=== PATIENT | male | born 1965 | race Caucasian/White ===

== ENCOUNTER 2018-08-13 20:39 | Emergency (ER) | payer BC ==
[2018-08-13 20:43] VITALS: BP 139/79; PULSE 74; TEMP 97.7; BMI 29.0
--- NOTE | 2018-08-13 20:44 | PDOC ---
Rapid Medical Evaluation Time Seen by Provider: 08/13/18 20:40 Medical Evaluation: 08/13/18 20:40 Pt presents to the ED for 3 days of L sided chest pain. States that the pain comes and goes. States that the pain is worse with movement. Exam: RRR, CTAB Orders: labs, EKG, CXR Pt to proceed to ED for further evaluation Discharge Disposition - Diagnosis Chest pain - Referrals Referrals: Jaime Hadley MD [Primary Care Provider] - - Patient Instructions - Post Discharge Activity
[2018-08-13] MEDS ORDERED: IBUPROFEN 400 MG TABLET (FP) PO ONE ×2 (21:32→21:48)
--- NOTE | 2018-08-13 21:43 | PDOC ---
History of Present Illness - General Chief Complaint: Chest Pain Stated Complaint: LEF SIDE PAIN Time Seen by Provider: 08/13/18 20:40 - History of Present Illness Initial Comments: 08/13/18 21:33 Shreyas Lema is a 52yo man with a PMH of hypothyroidism who presents with 1week of occasional, sharp, non-radiating, 6-9/10 pain that occurs with sudden movement of the left arm, twisting at the waist, or very deep inspiration. The pain self-resolves after a second or two. It is not accompanied by nausea, vomiting, SOB, or diaphoresis. The pain is not related to exertion. 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 Mr Lema has not tried anything at home to help relieve the pain. He denies any pain currently. He denies recent fevers, chills, trauma, unusual heavy lifting, or cough. He does not have a history of heartburn and has not been nauseated or vomiting. He has not noticed a rash. He says that he is able to run up a flight of stairs without the pain occurring. He does admit to a similar episode about 1.5 years ago and presented to the ED at [facility]. He does not remember what he was told at that time, but he does not recall any follow up or medications given at that time. He has regular doctor's visits every 6 months with his steward/stewardess third, who is also his PMD, for management of well-controlled hypothyroidism. Past History - Past Medical History Allergies/Adverse Reactions: Allergies Allergy/AdvReac Type Severity Reaction Status Date / Time No Known Allergies Allergy Verified 08/13/18 22:17 Home Medications: Ambulatory Orders Levothyroxine Sodium [Synthroid] 200 mcg PO AC 08/13/18 COPD: No Thyroid Disease: Yes - Suicide/Smoking/Psychosocial Hx Smoking History: Never smoked Review of Systems - Review of Systems Comments:: General: No fevers, no chills, no weight or appetite change, no malaise HEENT: No changes in vision, no changes in hearing, no congestion, no sore throat CV: No exertional chest pain, no palpitations, no LE edema Pulm: No SOB, no cough, no wheezing GI: No nausea or vomiting, no change in bowel habits, no melena : No frequency, no urgency, no dysuria Musc: No back pain, no joint swelling, no recent injury Skin: No rash, no lesions, no erythema Endo: No excessive thirst, no heat/cold intolerance Heme: No unusual bruising or bleeding, no swollen glands Neuro: No syncope, no numbness/tingling, no focal weakness Vasc: No claudication Psych: No recent change in mood, no SI or HI *Physical Exam - Vital Signs Last Vital Signs Temp Pulse Resp BP Pulse Ox 97.7 F 74 18 139/79 99 08/13/18 20:41 08/13/18 20:41 08/13/18 20:41 08/13/18 20:41 08/13/18 20:41 - Physical Exam Comments: General: Comfortable, no acute distress HEENT: PERRL, EOMI, MMM, voice normal, normal neck ROM, no LAD Cards: RRR, no murmur appreciated Pulm: Comfortable on room air, clear to auscultation bilaterally. Chest wall non -tender to palpation. Abd: Soft, nontender, nondistended : No CVA tenderness Ext: Atraumatic. No LE edema. ROM intact. Strength 5/5 and equal bilaterally Vasc: Extremities WWP. Skin: Normal color, no rashes or lesions Neuro: A&Ox3, CN grossly intact, normal speech, motor/sensory grossly intact and symmetric Psych: Mood appropriate to situation Heart Score/ECG Review - History History: Slightly suspicious - Electrocardiogram EKG: Normal - Age Age: 45-65 - Risk Factors Risk Factors Heart Score: No Hx Hypercholesterolemia, No Hx Hypertension, No Hx Diabetes, No Smoking History, No Positive family hx of cardiac disease, No Hx Obesity Based on the list above the patient has:: No risk factors known - ECG Intrepretation Rhythm: Regular Rhythm - [place]: Normal - ST and T Non Specific ST-T Wave changes: No - ECG Impressions Normal ECG: Yes ED Treatment Course - LABORATORY CBC & Chemistry Diagram: 08/13/18 23:15 08/13/18 23:15 - RADIOLOGY Radiology Studies Ordered: Category Date Time Status CHEST - PA [RAD] Stat Radiology 08/13/18 21:11 Ordered Medical Decision Making - Medical Decision Making 08/13/18 21:44 Shreyas Lema is a 52yo man with a PMH of hypothyroidism who presents with one week of intermittent, sharp, self-resolving, brief left lower chest pain that occurs with motion but is not related to exertion. - Very low suspicion for ACS given lack of underlying medical conditions, lack of associated nausea/vomiting/diaphoresis, and ability of the patient to complete strenuous activities without the pain occurring. Also, as he and his report that he sees his regular physician every 6 months, his lack of comorbidities is reliable - No fever, cough, sick contacts concerning for pneumonia or other pulmonary infection - No skin rash suggestive of shingles - EKG and CXR ordered in triage - EKG normal sinus rhythm without abnormalities - CXR pending - 800mg ibuprofen ordered for pain 08/13/18 23:09 - Given patient's age and work as a truck service manager, will order CBC, BMP and trop to rule out gross abnormalities. 08/13/18 23:59 - Labs unremarkable - CXR completed. Reviewed in ED. No abnormalities noted. - Plan to discharge home. Should follow up with his PMD within the next week. Discussed home care and return precautions. Mr Lema reports understanding of and agreement with this plan. Seen and discussed with Dr Macias. Leticia Garcia PGY1 *DC/Admit/Observation/Transfer Diagnosis at time of Disposition: Chest pain - Discharge Dispostion Disposition: HOME Condition at time of disposition: Stable - Referrals Referrals: Jaime Hadley MD [Primary Care Provider] - - Patient Instructions Printed Discharge Instructions: DI for Atypical Chest Pain Additional Instructions: Discharge Instructions: - You were seen in the ED for chest pain - An EKG and a chest xray were completed during your visit, and both were normal. There was no sign of any problem with your heart or lungs. - Your pain is most likely due to irritation to a muscle in between your ribs - You may use acetaminophen (Tylenol) or ibuprofen (Advil, Motrin) for continued pain. - Consider using hot or cold packs to help relieve your pain - If the pain occurs frequently and restricts your normal activities, you may consider buying lidocaine patches at any pharmacy. These can be applied for 12 hours per day and will numb the area that continues to hurt. - Call your regular doctor to make an appointment within the next week for follow up - Seek immediate medical care at the nearest ER if you experience persistent pain along with shortness of breath, sweating, or nausea/vomiting. - Post Discharge Activity
[2018-08-13 22:11] LABS: URINE APPEARANCE CLEAR; URINE BILIRUBIN NEGATIVE (<2.0 mg/dL); URINE COLOR YELLOW; URINE GLUCOSE (UA) NEGATIVE (NEGATIVE); URINE KETONE NEGATIVE (NEGATIVE); URINE LEUK ESTERASE NEGATIVE (NEGATIVE); URINE NITRITE NEGATIVE (NEGATIVE); URINE PROTEIN NEGATIVE (NEGATIVE); URINE UROBILINOGEN NEGATIVE mg/dL (0.2-1.0)
--- NOTE | 2018-08-13 22:49 | PDOC ---
Attending Attestation - Resident Resident Name: JoseLeticia - ED Attending Attestation I have performed the following: I have examined & evaluated the patient, The case was reviewed & discussed with the resident, I agree w/resident's findings & plan, Exceptions are as noted - HPI HPI: 08/14/18 00:03 52yo male with hx of hypothyroidism with intermittent brief seconds of L lower rib/chest pain. No tobacco. No trauma. Worse with movement. No cough. No f/c. No abd pain. No n/v/d. Has not tried meds at home. - Physicial Exam PE: 08/14/18 00:05 Gen: aaox3, nad heart: +s1s2 reg Lungs: cta b/l, no chest wall ttp abd: soft, nt/nd +bs ext: no c/c/e - Medical Decision Making 08/13/18 22:48 I, Dr. Verena Macias, DO, attest that this document has been prepared under my direction and personally reviewed by me in its entirety. I further attest, that it accurately reflects all work, treatment, procedures and medical decision -making performed by me. 08/13/18 23:29 a/p: 52yo male with intermittent L sided cp -pt denies pain at this time -worse with movement -follows with Dr. Hadley -low risk chest pain -will send labs, ekg, cxr -will monitor and reassess 08/14/18 00:02 cxr clear trop negative labs stable mildly elevated glucose, will need fasting glucose as outpt stable for d/c to home Heart Score/ECG Review - ECG Intrepretation Comment:: 08/13/18 22:49 sinus at 73, nl axis, nl interval, no acute st/t wave findings
[2018-08-13 23:24] LABS: HEMATOCRIT 43.1 % (35.4-49); MCH 30.7 pg (25.7-33.7); MCHC 34.7 g/dl (32.0-35.9); MEAN CELL VOLUME 88.4 fl (80-96); MEAN PLT VOLUME 7.2 fl (7.5-11.1); PLATELET COUNT 254 K/MM3 (134-434); RBC 4.87 M/mm3 (4.00-5.60); RDW 12.8 % (11.9-15.9); WHITE BLOOD COUNT 7.9 K/mm3 (4.0-10.0)
[2018-08-13 23:56] LABS: ANION GAP 8 MMOL/L (8-16); BLOOD UREA NITROGEN 16 mg/dL (7-18); CALCIUM 8.7 mg/dL (8.5-10.1); CHLORIDE 104 mmol/L (98-107); CO2 28 mmol/L (21-32); CREATININE 0.7 mg/dL (0.55-1.3); GLUCOSE,RANDOM 121 mg/dL (74-106); POTASSIUM 3.6 mmol/L (3.5-5.1); SODIUM 140 mmol/L (136-145)
--- NOTE | 2018-08-14 14:59 | EKG ---
Test Reason : Blood Pressure : / mmHG Vent. Rate : 073 BPM Atrial Rate : 073 BPM P-R Int : 164 ms QRS Dur : 096 ms QT Int : 432 ms P-R-T Axes : 049 037 021 degrees QTc Int : 475 ms NORMAL SINUS RHYTHM NORMAL ECG WHEN COMPARED WITH ECG OF 18-SEP-2001 11:09, QT HAS LENGTHENED Confirmed by MD [place], Ez ([id number]) on 08/14/2018 2:58:41 PM Referred By: Confirmed By:Ez Boyle MD
== END 2018-08-14 00:20 | disposition home or self-care (01) ==
LOC: JER 20:39
DX: R07.9 Chest pain, unspecified (principal); E03.9 Hypothyroidism, unspecified
CPT/HCPCS: 36415; 71045-TC-FY; 80048; 81003; 82550; 84484; 85027; 87086; 93005; 93010; 99283-25